=== PATIENT | female | born 1940 | race Caucasian/White ===

== ENCOUNTER 2021-07-21 09:17 | Emergency (ER) | payer OTHER, MEDICAID ==
[~2021-07-21] VITALS: Ht 172.7 cm; Wt 54.5 kg
[2021-07-21] MEDS ORDERED: ONDANSETRON HCL 4MG/2ML INJ IV STA (09:38)
[2021-07-21] MEDS ORDERED: SODIUM CHLORIDE 0.9% 1,000 ML IV ONE (09:45)
[2021-07-21] MEDS ORDERED: DEXTROSE 50% WATER 50ML SYRINGE IV ONE (10:30)
[2021-07-21 11:02] LABS: CLARITY URINE CLEAR (CLEAR); COLOR URINE YELLOW (YELLOW); KETONES URINE NEGATIVE (NEGATIVE); LEUKOCYTE ESTERASE URINE NEGATIVE (NEGATIVE); NITRITE URINE NEGATIVE (NEGATIVE); OCCULT BLOOD URINE NEGATIVE (NEGATIVE); PH URINE 7.5 (4.5-8.0); PROTEIN URINE NEGATIVE (NEGATIVE); UROBILINOGEN URINE 0.2 E.U./dL (0.2-1.0)
[2021-07-21 11:19] LABS: *AMPHETAMINES SCREEN URINE NEGATIVE (NEGATIVE); *BARBITURATES SCREEN URINE NEGATIVE (NEGATIVE); *BENZODIAZEPINES SCREEN URINE NEGATIVE (NEGATIVE); *COCAINE SCREEN URINE NEGATIVE (NEGATIVE); METHADONE URINE SCREEN NEGATIVE (NEGATIVE); OPIATES URINE SCREEN NEGATIVE (NEGATIVE)
[2021-07-21 11:20] LABS: CANNABINOID URINE SCREEN NEGATIVE (NEGATIVE); PHENCYCLIDINE URINE SCREEN NEGATIVE (NEGATIVE)
[2021-07-21 11:25] LABS: BASOPHILS % 0.3 % (0.0-2.0); EOSINOPHILS % 0.4 % (0.0-5.0); HEMATOCRIT. 34.9 % (36.0-48.0); HEMOGLOBIN. 11.7 g/dL (12.0-16.0); LYMPHOCYTES % 10.4 % (20.0-50.0); MEAN CORPUSCULAR HEMOGLOBIN 31.9 pg (28.0-32.0); MEAN CORPUSCULAR VOLUME 95.4 fL (81.0-99.0); MEAN PLATELET VOLUME 7.6 fl (7.4-10.4); MONOCYTES % 3.7 % (2.0-8.0); NEUTROPHILS % 85.2 % (40.0-76.0); PLATELET 302 x1000/uL (130-400); RED BLOOD CELL COUNT 3.66 mill/uL (4.2-5.4); RED CELL DISTRIBUTION WIDTH 16.2 % (11.6-14.6)
[2021-07-21 11:30] LABS: CHLORIDE 106 mEq/L (98-107)
[2021-07-21 11:34] LABS: ETHANOL BLOOD < 10 mg/dL
[2021-07-21] MEDS ORDERED: HEPARIN 5000 UNITS/ML VIAL IV PRN ×4 (15:30→16:06)
[2021-07-21] MEDS ORDERED: HEPARIN 25,000 UNITS PREMIX 250 ML IV PRN (15:30)
[2021-07-21] MEDS ORDERED: HEPARIN 5000 UNITS/ML VIAL IV SCH (15:30)
[2021-07-21 15:47] LABS: INR 1.2; PARTIAL THROMBOPLASTIN TIME 44.4 sec (23.4-31.0)
[2021-07-21] MEDS ORDERED: HEPARIN 5000 UNITS/ML VIAL IV NR (16:20)
[2021-07-21 16:30] VITALS: BP 124/66
== END 2021-07-21 17:59 | disposition home or self-care (01) ==
LOC: ER 09:17 → CANBEDREQ 16:26 → ER 17:59
DX: E11.649 Type 2 diabetes mellitus with hypoglycemia without coma (principal); I48.91 Unspecified atrial fibrillation; I10 Essential (primary) hypertension; Z79.01 Long term (current) use of anticoagulants; Z79.84 Long term (current) use of oral hypoglycemic drugs
CPT/HCPCS: 36415; 80053; 80305; 80320; 81003; 82962; 83690; 84443; 84484; 85025; 85610; 85730; 93005; 96361; 96374; 99285; J7030; G0480